=== PATIENT | female | born 1955 | race Caucasian/White ===

== ENCOUNTER → 2023-08-28 | Outpatient (REF) | payer MEDICARE, OTHER, SELFPAY | LOC: DHSLP | PROVIDERS: ATTENDING PHYSICIAN Internal Medicine Critical Care Medicine; FAMILY PHYSICIAN Family Medicine | DX: G47.33 Obstructive sleep apnea (adult) (pediatric) (principal) | CPT/HCPCS: 95800 ==

== ENCOUNTER → 2023-12-10 12:24 | Outpatient (REF) | payer MEDICARE, OTHER, SELFPAY | LOC: WDC 12:24 | PROVIDERS: ATTENDING PHYSICIAN Nurse Practitioner Adult Health; FAMILY PHYSICIAN Family Medicine | DX: Z12.31 Encounter for screening mammogram for malignant neoplasm of breast (principal) | CPT/HCPCS: 77063; 77067 ==

== ENCOUNTER → 2023-12-23 12:59 | Outpatient (REF) | payer MEDICARE, OTHER, SELFPAY | LOC: WDC 12:59 | PROVIDERS: ATTENDING PHYSICIAN Nurse Practitioner Adult Health; FAMILY PHYSICIAN Family Medicine | DX: R92.2 Inconclusive mammogram (principal); Z85.3 Personal history of malignant neoplasm of breast | CPT/HCPCS: 76641 ==

== ENCOUNTER 2024-08-31 18:49 | Emergency (ER) | payer MEDICARE, OTHER, SELFPAY ==
[2024-08-31 19:35] VITALS: BP 148/71; BMI 34.5
[2024-08-31 19:56] LABS: Urine Albumin 1+ (Neg - Trace); Urine Bilirubin Negative (Negative); Urine Character Clear (Clear); Urine Color Yellow; Urine Glucose Negative (Negative); Urine Ketone Negative (Negative); Urine Leukocyte Negative (Negative); Urine Nitrite Negative (Negative); Urine Occult Blood 1+ (Negative); Urine Urobilinogen Negative (Neg - 1+)
[2024-08-31 19:57] LABS: % Basophils 0.6 % (0-2); % Eosinophils 0.4 % (0-6); % Immature Granulocytes 0.5 % (0-0.5); % Lymphocytes 11.5 % (20.5-51.1); % Monocytes 5.2 % (1.7-9.3); % Neutrophils 81.8 % (42.2-75.2); Absolute Basophils 0.1 10^3/uL (0-0.2); Absolute Eosinophils 0.1 10^3/uL (0-0.7); Absolute Immature Granulocytes 0.1 10^3/uL (0-0.05); Absolute Lymphocytes 1.5 10^3/uL (1.2-3.4); Absolute Monocytes 0.7 10^3/uL (0.1-0.6); Hematocrit 39.7 % (37.0-47.0); Hemoglobin 12.9 g/dL (12.0-16.0); Mean Corp Hgb Conc. 32.5 g/dL (33.0-37.0); Mean Corpuscular Hgb 27.5 pg (27.0-31.0); Mean Corpuscular Volume 84.6 fL (81.0-99.0); Mean Platelet Volume 8.9 fL (7.4-10.4); Nucleated Red Blood Cells % 0 %; Platelet Count 305 10^3/uL (130-400); Red Blood Cell Count 4.69 10^6/uL (4.20-5.40); White Blood Cell Count 13.4 10^3/uL (4.8-10.8)
[2024-08-31 20:00] VITALS: BP 155/61
[2024-08-31 20:10] LABS: ALT (SGPT) 18 U/L (0-35); AST (SGOT) 17 U/L (14-36); Albumin 4.1 g/dl (3.5-5.0); Alkaline Phosphatase 98 U/L (38-126); Blood Urea Nitrogen 15 mg/dl (7-17); Calcium 9.7 mg/dl (8.4-10.2); Carbon Dioxide 28 mmol/L (22-30); Chloride 106 mmol/L (98-107); Estimated Creatinine Clearance 64 ml/min; Glucose 122 mg/dl (70-99); Lipase 78 U/L (23-300); Potassium 4.3 mmol/L (3.5-5.1); Sodium 140 mmol/L (135-145); Total Bilirubin 0.8 mg/dl (0.2-1.3); Total Protein 6.9 g/dl (6.3-8.2); eGFR > 60.00
[2024-08-31 20:16] LABS: Urine Bacteria Few (Negative); Urine White Cell 0-2 /HPF (0-5)
--- NOTE | 2024-08-31 20:23 | ED.GENMED ---
History of Present Illness
General
Chief Complaint: Abdominal Pain
Source: patient
Exam Limitations: none
Time Seen by Provider: 08/31/24 19:48
Nursing documentation reviewed up to this point in time: agreed with
History of Present Illness
History of Present Illness:
68 yo female with/o GERD, C section x 4, cholecystectomy, hysterectomy presents with lower abdominal pain. States it started about midnight last night, she was able to sleep and woke with the pain this a.m. that has gotten progressively worse. It is
a 'twisting, heavy, squeezing 8/10' pain. She has been more gassy and burping more today and that relieves the pain a little. She took Ibuprofen 600 mg which helped a little. She has been moving bowels regularly, urinating as usual but her bladder
has 'fullness' feeling. Pain is worse when moving around or sitting upright.
Denies f/c/n/v/d/c.
Past History
Past History
ED Past Medical History: GERD
ED Past Surgical History: Cholecystectomy, and Urological (hysterectomy)
Social History
Tobacco: Former smoker
Alcohol: Occasional
Personal: Single
Living: with family
Employment: Retired
Family History
Family History: Early CAD
Review of Systems
Review of Systems
Allergies reviewed?: Yes
All Other Systems: ROS reviewed and negative except as documented in HPI and ROS
Constitutional: Denies fever or fatigue
Respiratory: Denies trouble breathing
Cardiac: Denies chest pain
ABD/GI: Reports abdominal pain; Denies nausea, vomiting, diarrhea, constipated, bloody stools, black stools or anorexia
: Denies dysuria, frequency, difficulty voiding or urgency
Musculoskeletal: Reports no symptoms
Skin: Reports no symptoms
Phy Exam
Physical Exam
Physical Exam:
GENERAL: No acute distress. A&Ox3.
CONSTITUTIONAL: Afebrile.
EYES: clear, conjunctivae normal
ENMT: moist mucus membranes, Pharynx nl
RESPIRATORY: Regular respirations, nonlabored, lungs clear.
CARDIOVASCULAR: Regular rate and rhythm, no murmurs, no rubs.
GI: Soft, rotund, tender across lower abdomen, normal BS
MUSCULOSKELETAL: Moves with ease. Well perfused.
SKIN: Warm, dry, pink
PSYCH: Normal mood and affect. Well kept, interactive and appropriate
NEUROLOGIC: Awake, alert and oriented. No focal neurological deficits
Course
Orders/Labs/Results
Orders:
Orders
08/31/24 19:47
Complete Blood Count/With Diff Urgent
Comprehensive Metabolic Panel Urgent
Lipase Urgent
Urinalysis Reflex To Culture Urgent
Date Specimen was Collected: 08/31/24
Time Specimen was Collected: 19:37
Urine Microscopic Reflex Cult Urgent
08/31/24 19:56
CT Abd/Pel (IV only)-DH only Urgent
Comment:
Reason For Exam: mid to lower abdominal pain
08/31/24 20:45
Ketorolac [Toradol] 15 mg IV NOW STA
08/31/24 21:41
Amoxicillin 875 mg/Clav 125 mg [Augmentin 875 mg/125 mg] 1 tablet PO NOW STA
08/31/24 21:45
HYDROmorphone [Dilaudid] 1 mg IV NOW STA
Ondansetron Injectable [Zofran] 4 mg IV NOW STA
08/31/24 22:03
Hydrocodone 5/APAP 325 [[place] 5/325] 1 tablet PO NOW STA
Abnormal Lab Results
08/31/24
19:47
WBC 13.4 H 10^3/uL
(4.8-10.8)
MCHC 32.5 L g/dL
(33.0-37.0)
Abs Immat Gran (auto) 0.1 H 10^3/uL
(0-0.05)
Absolute Neuts (auto) 11.0 H 10^3/uL
(1.4-6.5)
Absolute Monos (auto) 0.7 H 10^3/uL
(0.1-0.6)
Neutrophils % 81.8 H %
(42.2-75.2)
Lymphocytes % 11.5 L %
(20.5-51.1)
Glucose 122 H mg/dl
(70-99)
Ur Occult Blood Reflex 1+ A
(Negative)
Urine RBC 3-6 A /HPF
(0-2)
Urine Bacteria (Reflex) Few A
(Negative)
Urine Albumin (Reflex) 1+ A
(Neg - Trace)
08/31/24 19:47
08/31/24 19:47
Vital Signs
Initial and Last Documented VS:
Initial Vital Signs
Temp Pulse Resp Pulse Ox
98.8 F 78 16 97
08/31/24 18:50 08/31/24 18:50 08/31/24 18:50 08/31/24 18:50
Last Documented Vital Signs
Temp Pulse Resp BP Pulse Ox
98.8 F 78 16 117/87 94
08/31/24 18:50 08/31/24 18:50 08/31/24 18:50 08/31/24 22:01 08/31/24 22:15
MDM/Problems Addressed
Differential Diagnosis Includes:
diverticulitis, cystitis, appendicitis
MDM/Problems Addressed:
68 yo female with/o GERD, C section x 4, cholecystectomy, hysterectomy presents with lower abdominal pain. States it started about midnight last night, she was able to sleep and woke with the pain this a.m. that has gotten progressively worse. It is
a 'twisting, heavy, squeezing 8/10' pain. She has been more gassy and burping more today and that relieves the pain a little. She took Ibuprofen 600 mg which helped a little. She has been moving bowels regularly, urinating as usual but her bladder
has 'fullness' feeling. Pain is worse when moving around or sitting upright.
Denies f/c/n/v/d/c.
8:30 p.m.
CBC WBC 13.4 with mild left shift
CMP Normal
U/A: no significant blood or sign of infection
9:[address] abd/pelvis with IV only contrast: Radiology report: IMPRESSION:
Redundant sigmoid colon with with diverticulosis and some mild mid to distal perisigmoid stranding which at least must be deemed suspicious for ACUTE DIVERTICULITIS.
No intestinal obstruction or free air.
Incompletely distended urinary bladder with at least relative diffuse wall thickening due to underdistention. Other etiology such as cystitis cannot be excluded. Consider correlation with urinalysis.
Prior cholecystectomy and hysterectomy.
*Critical Care Note
Total Time (30-74mins, 75-104mins- exclusive of procedures): Not Applicable
ED Attending Note
-
Portions of this chart may have been created with voice recognition software.� Occasional wrong word or��sound alike� substitutions may have occurred due to the inherent limitations of voice recognition software.
Discharge Plan
Departure
Patient Disposition: Home (Routine Discharge)
Date of Disposition: 08/31/24
Time of Disposition: 21:45
Patient with high blood pressure during this ER visit?: No
Condition: Fair
Discharge Problem:
Diverticulitis large intestine
Instructions: Clear Liquid Diet, Diverticulitis (DC)
Prescriptions:
New
amoxicillin-pot clavulanate 875-125 mg tablet
1 tab PO BID Qty: 19 0RF
hydrocodone-acetaminophen 5-325 mg tablet
1 tab PO Q8H PRN (Reason: Pain) Qty: 10 0RF
No Action
furosemide 40 mg Tablet
20 mg PO DAILYPRN PRN (Reason: swelling)
cetirizine [Zyrtec] 10 mg Tablet
10 mg PO DAILY
valacyclovir 1 gram Tablet
1,000 mg PO DAILYPRN PRN (Reason: fever blisters)
omeprazole 40 mg Capsule,Delayed Release(Dr/Ec)
40 mg PO DAILY
lorazepam 0.5 mg Tablet
0.5 mg PO DAILYPRN PRN (Reason: aniety)
Patient Comments:
08/31/24: Per PDMP, last filled 02/11/22 for 60 tablets over 15 days
naproxen sodium [Aleve] 220 mg Tablet
220 mg PO HS
valsartan 320 mg Tablet
320 mg PO HS
ibuprofen 600 mg Tablet
600 mg PO ONCE PRN (Reason: mild pain)
Patient Comments:
08/31/24: Patient had some leftover from previous hysterectomy, utilized that supply.
albuterol sulfate 90 mcg/actuation Hfa Aerosol Inhaler
1 puff INHALATION R Q4HPRN PRN (Reason: sob)
lysine [L-Lysine] 500 mg Tablet
500 mg PO DAILY
fluticasone propionate 50 mcg/actuation [place],Suspension
2 spray INTRANASAL DAILY
rosuvastatin 5 mg Tablet
2.5 mg PO MOWEFR
cholecalciferol (vitamin D3) [Vitamin D3] 50 mcg (2,000 unit) Tablet
50 mcg PO DAILY
Breztri Aerosphere 160-9-4.8 mcg/actuation Hfa Aerosol Inhaler
2 inh INHALATION R BID
Referrals:
Your, Colorectal surgeon at [facility] [Other] - Call in 1-3 days for appt
Jefferson Kwon MD [Family Provider] -
Activity Restrictions/Additional Instructions:
As we discussed, you have diverticulitis.
I sent a prescription to your pharmacy for Augmentin 875 mg to take twice a day for 10 days
Call your colorectal surgeons office tomorrow and asked them when they want to see you for follow-up
Clear liquid diet for 24 hours then slowly advance your diet to full liquids then bland then regular
Return here immediately for fever, worsening abdominal pain, bloody stools or feeling sicker in any way
Interventions
Interventions:
*Risk Screen - Suicide Last Done: 08/31/24 18:50
*General Assessment Last Done: 08/31/24 19:38
*Neglect/Abuse Screening Last Done: 08/31/24 18:50
*ED- Fall Risk Assessment Last Done: 08/31/24 19:38
*ED COVID-19 Vaccine History Last Done: 08/31/24 19:38
*Nursing Disposition Last Done: 08/31/24 22:29
TQ-Nxcmsu-[id number] Assessment Last Done: 08/31/24 19:38
Discharge Date and Time
Discharge Date/Time: 08/31/24 22:29
Print Language: SUDANESE
[2024-08-31] MEDS: TORADOL 15 MG IV (21:09)
[2024-08-31 21:13] VITALS: BP 154/68
[2024-08-31 22:01] VITALS: BP 117/87
[2024-08-31] MEDS: AUGMENTIN 875 MG/125 MG 1 TABLET PO (22:07)
[2024-08-31] MEDS: ZOFRAN 4 MG IV (22:07)
[2024-08-31] MEDS: DILAUDID 1 MG IV (22:07)
[2024-08-31] MEDS: NORCO 5/325 1 TABLET PO (22:07)
== END 2024-08-31 22:29 | disposition home or self-care (01) ==
LOC: EMR 18:49
PROVIDERS: EMERGENCY PHYSICIAN Student in an Organized Health Care Education/Training Program; FAMILY PHYSICIAN Family Medicine
DX: K57.32 Diverticulitis of large intestine without perforation or abscess without bleeding (principal); K21.9 Gastro-esophageal reflux disease without esophagitis; Z90.49 Acquired absence of other specified parts of digestive tract; Z90.710 Acquired absence of both cervix and uterus
CPT/HCPCS: 96374; 96375; 99284; 74177; 80053; 81003; 81015; 83690; 85025; Q9967

== ENCOUNTER → 2024-12-12 12:43 | Outpatient (REF) | payer MEDICARE, OTHER, SELFPAY | LOC: WDC 12:43 | PROVIDERS: ATTENDING PHYSICIAN Student in an Organized Health Care Education/Training Program; FAMILY PHYSICIAN Family Medicine | DX: Z12.31 Encounter for screening mammogram for malignant neoplasm of breast (principal) | CPT/HCPCS: 77063; 77067 ==

== ENCOUNTER → 2024-12-26 10:21 | Outpatient (REF) | payer MEDICARE, OTHER, SELFPAY | LOC: HWRAD 10:21 | PROVIDERS: ATTENDING PHYSICIAN Nurse Practitioner Adult Health; FAMILY PHYSICIAN Family Medicine | DX: R91.1 Solitary pulmonary nodule (principal) | CPT/HCPCS: 71250 ==

== ENCOUNTER 2025-03-22 14:26 | Outpatient (RCR) | payer MEDICARE, OTHER, SELFPAY | END 2025-03-22 23:59 | disposition home or self-care (01) | LOC: RPT 14:26 | PROVIDERS: ATTENDING PHYSICIAN Obstetrics & Gynecology; FAMILY PHYSICIAN Family Medicine | DX: R39.89 Other symptoms and signs involving the genitourinary system (principal); M62.89 Other specified disorders of muscle; N39.3 Stress incontinence (female) (male); Z73.6 Limitation of activities due to disability; R10.2 Pelvic and perineal pain; R10.20 Pelvic and perineal pain unspecified side | CPT/HCPCS: 97140; 97163; 97530 ==

== ENCOUNTER 2025-04-14 09:22 | Outpatient (RCR) | payer MEDICARE, OTHER, SELFPAY | END 2025-04-14 23:59 | disposition home or self-care (01) | LOC: RPT 09:22 | PROVIDERS: ATTENDING PHYSICIAN Obstetrics & Gynecology; FAMILY PHYSICIAN Family Medicine | DX: R39.89 Other symptoms and signs involving the genitourinary system (principal); M62.89 Other specified disorders of muscle; N39.3 Stress incontinence (female) (male); Z73.6 Limitation of activities due to disability; R10.20 Pelvic and perineal pain unspecified side; R10.2 Pelvic and perineal pain | CPT/HCPCS: 97110; 97112; 97140; 97530 ==

== ENCOUNTER → 2025-04-28 09:44 | Outpatient (REF) | payer MEDICARE, OTHER, SELFPAY | LOC: HWRAD 09:44 | PROVIDERS: ATTENDING PHYSICIAN Internal Medicine Gastroenterology; FAMILY PHYSICIAN Family Medicine | DX: R14.0 Abdominal distension (gaseous) (principal) | CPT/HCPCS: 76700 ==

== ENCOUNTER 2025-05-10 08:24 | Outpatient (RCR) | payer MEDICARE, OTHER, SELFPAY | END 2025-05-10 23:59 | disposition home or self-care (01) | LOC: RPT 08:24 | PROVIDERS: ATTENDING PHYSICIAN Obstetrics & Gynecology; FAMILY PHYSICIAN Family Medicine | DX: R39.89 Other symptoms and signs involving the genitourinary system (principal); M62.89 Other specified disorders of muscle; N39.3 Stress incontinence (female) (male); Z73.6 Limitation of activities due to disability; R10.20 Pelvic and perineal pain unspecified side; R10.2 Pelvic and perineal pain | CPT/HCPCS: 97110; 97112; 97140; 97530 ==

== ENCOUNTER → 2025-05-24 13:49 | Outpatient (REF) | payer MEDICARE, OTHER, SELFPAY | LOC: WDC 13:49 | PROVIDERS: ATTENDING PHYSICIAN Student in an Organized Health Care Education/Training Program; FAMILY PHYSICIAN Family Medicine | DX: R92.2 Inconclusive mammogram (principal); R92.30 Dense breasts, unspecified | CPT/HCPCS: 76641 ==